=== PATIENT | male | born 1965 | race Caucasian/White ===

== ENCOUNTER 2016-12-18 13:32 | Day surgery (SDC) | payer MEDICAID ==
[~2016-12-18] VITALS: Ht 185.4 cm; Wt 111.1 kg
[~2016-12-18 13:32] MED LIST: DICLOFENAC SODI75 M2 PO; GABAPENTIN300 MG PO; HYDROCODONE BIT1 T45 PO; METHOCARBAMOL750 MG PO; NEURONTIN600 M1 PO; NORCO 325 MG-51 TAB PO
[2016-12-18 13:38] VITALS: BP 152/97
[2016-12-18 14:01] VITALS: BP 152/97
[2016-12-18 14:02] VITALS: BP 149/73
--- NOTE | 2016-12-18 14:12 | Procedure Note ---
Procedure detail Date of procedure: 12/18/16 Anesthesiologist: Dmitri benavidez CRNA Complications: None Pre-procedure diagnosis: Degenerative disease lumbar spine multiple levels lumbar radiculopathy symptoms. Lumbar spondylosis. Post-procedure diagnosis: Same. Indications for procedure: This patient's a pleasant 51-year-old white male we are treating her pain clinic for chronic low back pain secondary to degenerative disease lumbar spine multiple levels as well as multilevel lumbar spondylosis. Multilevel facet arthropathy. He presents today for her first round medial branch block L3-4, L4- 5, L5-S1. Procedure detail: Informed consent was obtained and the risk and benefits of the procedure was explained to the patient. Patient was taken to the procedure room where noninvasive monitors were placed, including noninvasive blood pressure cuff as well as pulse oximeter. The area over the lumbar spine was cleansed using chlorhexidine as a cleansing solution. I anesthetized the skin and subcutaneous tissues with 1% Lidocaine. I placed 22-gauge spinal needles into the facet joint / medial branches of [L3-L4, L4-L5, and L5-S1] bilaterally. Needle placement was confirmed with fluoroscopy. After confirmation of needle placement, each site was injected with 1 mL of 1% lidocaine and 0.25 % Marcaine and 10 mg of Depo- Medrol. A total of 80 mg of depo medrol was used for bilateral medial branch blocks of [L3-L4, L4-L5, and L5-S1] bilaterally. Patient tolerated the procedure without difficulty. There were no complications. Plan and disposition: Patient was reassessed 10 minutes postprocedure. Patient reports 80-90 percent relief in axial back pain. We will follow up with this patient in the clinic and proceed with the appropriate approval for RFA. at [id number]
[2016-12-18 14:25] VITALS: BP 144/95
== END 2016-12-18 14:25 | disposition home or self-care (01) ==
LOC: PM 13:32
PROC: 3E0T33Z Introduction of Anti-inflammatory into Peripheral Nerves and Plexi, Percutaneous Approach (ICD-10-PCS; principal; 2016-12-18)
PROC: 3E0T3BZ Introduction of Anesthetic Agent into Peripheral Nerves and Plexi, Percutaneous Approach (ICD-10-PCS; 2016-12-18)
PROC: BR161ZZ Fluoroscopy of Lumbar Facet Joint(s) using Low Osmolar Contrast (ICD-10-PCS; 2016-12-18)
DX: M51.16 Intervertebral disc disorders with radiculopathy, lumbar region (principal); M47.896 Other spondylosis, lumbar region
CPT/HCPCS: J1040

== ENCOUNTER → 2017-07-09 | Outpatient (CLI) | payer MEDICAID ==
[~2017-07-09] MED LIST changes: +ASPIRIN 81MG TA81 MG PO; +MELOXICAM7.5 MG PO
--- NOTE | 2017-07-09 16:27 | RADIOLOGY REPORT PS360 ---
MRI-C-SPINE W/O, MRI-3D RENDERING/MYELOGRAM HISTORY: NECK PAIN right arm pain outside neck pain symptoms 2 years. 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 On 1.5T Siemens wide bore MRI. 3-D MR myelogram image set obtained & performed on MRI workstation. Additional sagittal thin section T2 weighted dataset obtained from this latter acquisition as well (---76 CPT) COMPARISON : None available FINDINGS Cervical vertebral bodies are intact. Cranial cervical junction appears normal. . Cervical cord normal caliber and signal C2/3,: disc intact & unremarkable. Neural foramen patent. C3/4. Mild uncovertebral joint hypertrophy earlyspurring bilateral left greater than right. Minor encroachment upon entry neural foramen bilateral. C4/5.: only scant uncovertebral joint hypertrophy to the left negligible. Minor foraminal encroachment on left. C5/6.: Mild disc space narrowing with Diffuse Disc/osteophytes posteriorly which slightly indents thecal sac. Minor additional disc protrusion midline and just to the left. These features indenting the thecal sac, and nearly abut the anterior aspect of the cervical cord. Mild/moderate encroachment upon entry of the neural foramen bilaterally. Slight narrowing spinal canal remains over 10 mm AP. c6/7. Mild/moderate degenerative disc space narrowing. Bulging disc and osteophyte features most evident left paracentral slightly more than right paracentral slightly indenting thecal sac. Mild encroachment upon foramen bilateral. C7/T1, intact. T1/T2 & T2/T3 disc intact unremarkable.. Incidental note small/ tiny perineural cyst seen bilaterally is evident to the right at C7/T1 and C6-C7 . 3-D MRI myelogram image set shows a generous caliber thecal sac with only slight anterior indentation at C5-C6 due to the disc bulge/broad-based protrusion. Perhaps very slightly less filling at theq left c 6/7 and C5/6 nerve root sleeves Nonspecific straightening C-spine. Only mild facet arthropathy suggested on these images. IMPRESSION Mild degenerative disc changes and cervical spondylosis . Findings most evident C5-C6. C5-6 with Diffuse Disc/osteophyte features posteriorly with slight additional central disc protrusion indents anterior aspect thecal sac moderate encroachment upon entry of foramen bilaterally C6/7. Degenerative disc space narrowing. Mild Hard disc left paracentral more slightly more than right features mildly indenting thecal sac precentral region left >right.. Also Mild bilateral foraminal encroachment. C3/4. Posterior Mild Uncovertebral joint hypertrophy most evident to the left Minimal findings at other levels above
== END ==
LOC: RAD 09:05
DX: M54.2 Cervicalgia (principal)